=== PATIENT | female | born 1955 | race Caucasian/White ===

== ENCOUNTER 2019-12-25 09:34 | Outpatient (CLI) | payer OTHER, SELFPAY ==
[2019-12-25 10:30] LABS: Basophils Absolute Auto 0.1 K/mm3 (0.0-0.1); Basophils Percent Auto 0.8 % (0.2-1.2); Eosinophils Absolute Auto 0.1 K/mm3 (0-0.3); Eosinophils Percent Auto 1.9 % (0-4.4); Hematocrit 42.3 % (37.0-47.0); Hemoglobin 13.8 g/dL (12.0-15.0); Immature Granulocyte Absolute 0.01 K/mm3 (0.00-0.031); Immature Granulocyte Percent A 0.2 % (0-0.5); Lymphocytes Absolute Auto 2.29 K/mm3 (0.9-3.2); Lymphocytes Percent Auto 36.2 % (18.3-44.2); Mean Corpuscular HGB Conc 32.6 g/dl (32-36); Mean Corpuscular Hemoglobin 31.3 pg (26-34); Mean Corpuscular Volume 95.9 fl (80-100); Mean Platelet Volume 10.6 fl (7.4-10.4); Monocytes Absolute Auto 0.4 K/mm3 (0.1-0.6); Monocytes Percent Auto 6.2 % (2.6-8.5); Neutrophils Absolute Auto 3.5 K/mm3 (1.3-6.7); Neutrophils Percent Auto 54.7 % (45.5-73.1); Platelet Count Result 296 k/mm3 (150-375); Red Blood Count 4.41 M/mm3 (4.2-5.4); Red Cell Distribution Width 12.8 % (11.5-14.5); White Blood Count 6.3 K/mm3 (4.5-10.0)
[2019-12-25 10:43] LABS: Alanine Aminotransferase 17 U/L (4-35); Albumin Level 4.6 g/dL (3.5-5.1); Alkaline Phosphatase 96 U/L (38-126); Aspartate Amino Transferase 23 U/L (14-36); Bilirubin,Total 0.3 mg/dL (0.2-1.3); Blood Urea Nitrogen 22 mg/dL (7-17); Calcium 9.2 mg/dL (8.4-10.2); Carbon Dioxide 31 mmol/L (22-30); Chloride 101 mmol/L (98-107); Cholesterol 208 mg/dL (0-200); Estimated Glomerular Filt Rate > 60; Glucose 97 mg/dL (65-105); HDL Direct 79 mg/dL; Potassium 4.2 mmol/L (3.4-5.0); Sodium 138 mmol/L (137-145); Triglycerides 117 mg/dL (<150)
[2019-12-25 10:53] LABS: LDL Cholesterol Direct 101 mg/dL
[2019-12-25 11:07] LABS: Vitamin D 25 Hydroxy 44.4 ng/mL
== END 2019-12-25 09:35 | disposition home or self-care (01) ==
PROVIDERS: PCP Internal Medicine; Visit Provider Internal Medicine
DX: I10 Essential (primary) hypertension (principal); E78.5 Hyperlipidemia, unspecified; M85.80 Other specified disorders of bone density and structure, unspecified site
CPT/HCPCS: 36415; 80053; 80061; 82306; 84443; 85025

== ENCOUNTER 2020-06-10 16:03 | Outpatient (CLI) | payer OTHER, SELFPAY ==
--- NOTE | ~2020-06-10 | XR_ITS ---
XR_CERV2-3V_CR DATE: 06/10/2020 16:38 INDICATION: Right shoulder pain, radiating to neck and down the right upper extremity TECHNIQUE: AP, open-mouth, lateral views COMPARISON: None FINDINGS: There is straightening of the cervical spine. C1 and C2 are normally aligned and the odontoid process is intact. There is minimal anterolisthesis at C2-3. C2-3 and C3-4 and C4-5 interspaces are relatively preserved . There is moderately severe degenerative disc disease at C5-6 and C6-7. There is uncovertebral joint spurring in the mid to lower cervical spine and degenerative change of t he apophyseal joints. IMPRESSION: Straightening Degenerative changes, most pronounced at C5-6 and C6-7 Reviewed, dictated and finalized at Location A. Reviewed, dictated and finalized at location A. NICAL TECHNICAL OFFICER
--- NOTE | ~2020-06-10 | XR_ITS ---
XR shoulder RT min 2V DATE: 06/10/2020 16:38 INDICATION: Right shoulder pain, radiating to neck and down the right upper extremity TECHNIQUE: 4 views COMPARISON: None FINDINGS: Incidentally noted is mild to moderate loss of height at T8 vertebral body. No fracture or dislocation, periosteal reaction or bone destruction or abnormal soft tissue calcifica tion of the right shoulder. IMPRESSION: T8 loss of height No significant radiographic abnormality of the right shoulder Reviewed, dictated and finalized at location A. SHOP MANAGER
== END 2020-06-10 16:04 | disposition home or self-care (01) ==
LOC: ANHIMG 16:07
PROVIDERS: PCP Internal Medicine; Visit Provider Internal Medicine
DX: M25.511 Pain in right shoulder (principal); M50.323 Other cervical disc degeneration at C6-C7 level
CPT/HCPCS: 72040; 73030

== ENCOUNTER 2020-06-15 10:08 | Outpatient (CLI) | payer OTHER, SELFPAY ==
[2020-06-15 10:53] LABS: Hematocrit 38.1 % (37.0-47.0); Hemoglobin 12.9 g/dL (12.0-15.0); Mean Corpuscular HGB Conc 33.9 g/dl (32-36); Mean Corpuscular Hemoglobin 32.4 pg (26-34); Mean Corpuscular Volume 95.7 fl (80-100); Mean Platelet Volume 9.8 fl (7.4-10.4); Platelet Count Result 279 k/mm3 (150-375); Red Blood Count 3.98 M/mm3 (4.2-5.4); Red Cell Distribution Width 12.3 % (11.5-14.5); White Blood Count 6.9 K/mm3 (4.5-10.0)
[2020-06-15 11:08] LABS: Alanine Aminotransferase 15 U/L (4-35); Albumin Level 4.2 g/dL (3.5-5.1); Alkaline Phosphatase 94 U/L (38-126); Anion Gap 7 mmol/L (8-16); Aspartate Amino Transferase 20 U/L (14-36); Bilirubin,Total 0.4 mg/dL (0.2-1.3); Blood Urea Nitrogen 12 mg/dL (7-17); Calcium 9.3 mg/dL (8.4-10.2); Carbon Dioxide 30 mmol/L (22-30); Chloride 99 mmol/L (98-107); Cholesterol 174 mg/dL (0-200); Estimated Glomerular Filt Rate > 60; Glucose 97 mg/dL (65-105); HDL Direct 71 mg/dL; Potassium 4.2 mmol/L (3.4-5.0); Sodium 136 mmol/L (137-145); Triglycerides 113 mg/dL (<150)
[2020-06-15 11:19] LABS: LDL Cholesterol Direct 77 mg/dL
[2020-06-15 12:28] LABS: Vitamin D 25 Hydroxy 43.5 ng/mL
== END 2020-06-15 10:09 | disposition home or self-care (01) ==
LOC: ANHLAB 10:11
PROVIDERS: PCP Internal Medicine; Visit Provider Internal Medicine
DX: E78.2 Mixed hyperlipidemia (principal); I10 Essential (primary) hypertension; M85.80 Other specified disorders of bone density and structure, unspecified site
CPT/HCPCS: 36415; 80053; 80061; 82306; 84443; 85027

== ENCOUNTER 2020-09-15 10:04 | Outpatient (CLI) | payer OTHER, SELFPAY ==
--- NOTE | 2020-09-15 11:30 | NEURO_ITS ---
Impression: # Complains of numbness of both hands and right upper extremity and neck pain. # Left Carpal Tunnel Syndrome, sensory more than motor. # No ulnar neuropathy. # Normal needle/EMG exam,with normal F waves latency bilaterally.. Nerve Conduction Studies Anti Sensory Summary Table Stim Site NR Peak (ms) P-T Amp (?V) Site1 Site2 Delta-P (ms) Dist (cm) Yefri (m/s) Left Median Anti Sensory (2-3nd Digit) Wrist 9.5 11.9 Wrist 2-3nd Digit 9.5 14.0 15 Wrist 6.8 30.0 Wrist 2-3nd Digit 9.5 14.0 15 Right Median Anti Sensory (2-3nd Digit) Wrist 3.1 21.6 Wrist 2-3nd Digit 3.1 14.0 45 Wrist 2.4 8.6 Wrist 2-3nd Digit 3.1 14.0 45 Left Radial Anti Sensory (Base 1st Digit) Wrist 1.9 28.7 Wrist Base 1st Digit 1.9 0.0 Right Radial Anti Sensory (Base 1st Digit) Wrist 2.1 29.4 Wrist Base 1st Digit 2.1 0.0 Left Ulnar Anti Sensory (5th Digit) Wrist 2.3 66.4 Wrist 5th Digit 2.3 14.0 61 Right Ulnar Anti Sensory (5th Digit) Wrist 2.4 59.8 Wrist 5th Digit 2.4 14.0 58 Motor Summary Table Stim Site NR Onset (ms) O-P Amp (mV) Site1 Site2 Delta-0 (ms) Dist (cm) Yefri (m/s) Left Median Motor (Abd Poll Brev) Wrist 3.8 1.6 Elbow Wrist 3.6 25.0 69 Elbow 7.4 2.5 Right Median Motor (Abd Poll Brev) Wrist 3.1 3.6 Elbow Wrist 4.1 25.0 61 Elbow 7.2 1.8 Left Ulnar Motor (Abd Dig Minimi) Wrist 2.1 4.9 A Elbow Wrist 4.2 26.0 62 A Elbow 6.3 4.4 Right Ulnar Motor (Abd Dig Minimi) Wrist 2.4 5.9 A Elbow Wrist 4.5 26.0 58 A Elbow 6.9 5.0 F Wave Studies NR F-Lat (ms) L-R F-Lat (ms) Left Median (Mrkrs) (Abd Poll Brev) 25.11 0.99 Right Median (Mrkrs) (Abd Poll Brev) 24.12 0.99 Left Ulnar (Mrkrs) (Abd Dig Min) 23.83 0.03 Right Ulnar (Mrkrs) (Abd Dig Min) 23.80 0.03 EMG Side Muscle Nerve Root Ins Act Fibs Amp Dur Recrt Comment Right 1stDorInt Ulnar C8-T1 Nml Nml Nml Nml Nml Right Ext Indicis Radial (Post Int) C7-8 Nml Nml Nml Nml Nml Right Ext Digitorum Radial (Post Int) C7-8 Nml Nml Nml Nml Nml Right BrachioRad Radial C5-6 Nml Nml Nml Nml Nml Right PronatorTeres Median C6-7 Nml Nml Nml Nml Nml Right Abd Poll Brev Median C8-T1 Nml Nml Nml Nml Nml Left 1stDorInt Ulnar C8-T1 Nml Nml Nml Nml Nml Left Ext Indicis Radial (Post Int) C7-8 Nml Nml Nml Nml Nml Left Ext Digitorum Radial (Post Int) C7-8 Nml Nml Nml Nml Nml Left BrachioRad Radial C5-6 Nml Nml Nml Nml Nml Left PronatorTeres Median C6-7 Nml Nml Nml Nml Nml Left Abd Poll Brev Median C8-T1 Nml Nml Nml Nml Nml Left ABD Dig Min Ulnar C8-T1 Nml Nml Nml Nml Nml Right ABD Dig Min Ulnar C8-T1 Nml Nml Nml Nml Nml Right Biceps Musculocut C5-6 Nml Nml Nml Nml Nml Right Brachialis Musculocut C5-6 Nml Nml Nml Nml Nml Right Triceps Radial C6-7-8 Nml Nml Nml Nml Nml MTDD
== END 2020-09-15 10:05 | disposition home or self-care (01) ==
LOC: ANHNEURO 10:06
PROVIDERS: PCP Internal Medicine; Visit Provider Internal Medicine
DX: R20.0 Anesthesia of skin (principal); G56.02 Carpal tunnel syndrome, left upper limb
CPT/HCPCS: 95886; 95911

== ENCOUNTER → 2021-01-24 12:45 | Outpatient (CLI) | payer OTHER, SELFPAY ==
--- NOTE | ~2021-01-24 | MM_ITS ---
EXAMINATION: MM screening [facility] BI w malu HISTORY: Screening TECHNIQUE: Craniocaudal and mediolateral oblique 3-D tomosynthesis images were obtained and synthetic 2-D images were generated. CAD analysis was submitted and interpreted. COMPARISON: Comparison to multiple prior studies sequentially, with oldest reviewed study dated 09/14. BREAST PARENCHYMAL COMPOSITION: There are scattered areas of fibroglandular density. FINDINGS: There is no evidence of suspicious mass, calcification, or architectural distortion to sugg est malignancy in either breast. There has been no suspicious interval change. IMPRESSION: 1. No mammographic evidence of malignancy. 2. Recommend routine screening mammography in one year. BI-RADS Category 1: Negative Reviewed, dictated and finalized at location A.
== END ==
PROVIDERS: Visit Provider Internal Medicine
DX: Z12.31 Encounter for screening mammogram for malignant neoplasm of breast (principal)
CPT/HCPCS: 77063; 77067

== ENCOUNTER → 2021-02-02 15:42 | Outpatient (CLI) | payer OTHER, SELFPAY ==
--- NOTE | ~2021-02-02 | XR_ITS ---
EXAMINATION: XR chest 2V EXAM DATE: 02/02/2021 16:09 INDICATION: Cough. TECHNIQUE: Frontal and lateral projections of the chest obtained and reviewed. Comparison is made to prior examination from 03/15/2007. FINDINGS: The lungs are clear. There are no pleural effusions. The cardiomediastinal silhouette is within normal limits. There is no pneumothorax suspected. The bones and soft tissues are unremarkab le. IMPRESSION: No acute cardiopulmonary findings. Reviewed, dictated and finalized at location B.
== END ==
PROVIDERS: PCP Internal Medicine; Visit Provider Internal Medicine
DX: R05 Cough (principal)
CPT/HCPCS: 71046

== ENCOUNTER 2021-04-11 10:24 | Outpatient (CLI) | payer OTHER, SELFPAY ==
[2021-04-11 11:15] LABS: Basophils Absolute Auto 0.1 K/mm3 (0.0-0.1); Eosinophils Absolute Auto 0.2 K/mm3 (0-0.3); Eosinophils Percent Auto 2.7 % (0-4.4); Hematocrit 39.3 % (37.0-47.0); Hemoglobin 12.6 g/dL (12.0-15.0); Immature Granulocyte Absolute 0.01 K/mm3 (0.00-0.031); Immature Granulocyte Percent A 0.2 % (0-0.5); Lymphocytes Absolute Auto 1.97 K/mm3 (0.9-3.2); Lymphocytes Percent Auto 31.5 % (18.3-44.2); Mean Corpuscular HGB Conc 32.1 g/dl (32-36); Mean Corpuscular Hemoglobin 31.8 pg (26-34); Mean Corpuscular Volume 99.2 fl (80-100); Mean Platelet Volume 10.1 fl (7.4-10.4); Monocytes Absolute Auto 0.4 K/mm3 (0.1-0.6); Monocytes Percent Auto 6.4 % (2.6-8.5); Neutrophils Absolute Auto 3.6 K/mm3 (1.3-6.7); Neutrophils Percent Auto 58.2 % (45.5-73.1); Platelet Count Result 274 k/mm3 (150-375); Red Blood Count 3.96 M/mm3 (4.2-5.4); Red Cell Distribution Width 12.8 % (11.5-14.5); White Blood Count 6.3 K/mm3 (4.5-10.0)
[2021-04-11 11:31] LABS: Alanine Aminotransferase 15 U/L (4-35); Albumin Level 4.3 g/dL (3.5-5.1); Alkaline Phosphatase 86 U/L (38-126); Anion Gap 8 mmol/L (8-16); Aspartate Amino Transferase 20 U/L (14-36); Bilirubin,Total 0.4 mg/dL (0.2-1.3); Blood Urea Nitrogen 10 mg/dL (7-17); Calcium 9.4 mg/dL (8.4-10.2); Carbon Dioxide 30 mmol/L (22-30); Chloride 101 mmol/L (98-107); Cholesterol 157 mg/dL (0-200); Estimated Glomerular Filt Rate > 60; Glucose 94 mg/dL (65-110); HDL Direct 81 mg/dL; Hemoglobin A1C 5.6 % (<5.7); Potassium 4.4 mmol/L (3.4-5.0); Sodium 139 mmol/L (137-145); Triglycerides 108 mg/dL (<150)
[2021-04-11 11:43] LABS: LDL Cholesterol Direct 49 mg/dL
[2021-04-11 12:29] LABS: Vitamin D 25 Hydroxy 43.6 ng/mL
== END 2021-04-11 10:25 | disposition home or self-care (01) ==
PROVIDERS: PCP Internal Medicine; Visit Provider Internal Medicine
DX: M85.80 Other specified disorders of bone density and structure, unspecified site (principal); I10 Essential (primary) hypertension; F41.8 Other specified anxiety disorders; E78.2 Mixed hyperlipidemia; Z79.899 Other long term (current) drug therapy
CPT/HCPCS: 36415; 80053; 80061; 82306; 83036; 84443; 85025

== ENCOUNTER → 2021-06-13 15:19 | Outpatient (CLI) | payer OTHER, SELFPAY ==
--- NOTE | ~2021-06-13 | XR_ITS ---
EXAMINATION: XR hand LT min 3V, XR hand RT min 3V DATE: 06/13/2021 15:49 INDICATION: Trigger finger with pain at the bilateral first interphalangeal joints and second and thi rd proximal interphalangeal joints. TECHNIQUE: 1. Posteroanterior, oblique and lateral views of the left hand were obtained. 2. Posteroanterior, oblique and lateral views of the right hand were obtained. COMPARISON: None. FINDINGS: Bilateral ulnar positive variance, and-2 mm on the left and 2-3 mm on the right. Alignment is otherwi se normal at both hands. Old healed fracture deformity at the base of the right fifth middle phalanx which demonstrates widening in the AP direction on the lateral projection. No acute fractures. Relati vely symmetric typical pattern of mild to moderate polyarticular osteoarthritis. This is of moderate severity at the distal interphalangeal joints at the bilateral second and third digits and at the rig ht fifth proximal interphalangeal joint and mild at the remaining interphalangeal joints and bilatera l first metacarpophalangeal, triscaphe and first carpal metacarpal joints. No erosions to suggest inf lammatory arthritis. Bilateral diffuse osteopenia. IMPRESSION: 1. Mild to moderate polyarticular osteoarthritis at both hands. Reviewed, dictated and finalized at location A. AND GARDEN TECHNICIAN IMPRESSION: 1. Mild to moderate polyarticular osteoarthritis at both hands.
== END ==
PROVIDERS: PCP Internal Medicine; Visit Provider Internal Medicine
DX: M65.30 Trigger finger, unspecified finger (principal); M19.041 Primary osteoarthritis, right hand; M19.042 Primary osteoarthritis, left hand
CPT/HCPCS: 73130

== ENCOUNTER 2021-08-08 11:00 | Outpatient (CLI) | payer OTHER, SELFPAY ==
[2021-08-08 11:53] LABS: Basophils Absolute Auto 0.1 K/mm3 (0.0-0.1); Basophils Percent Auto 1.1 % (0.2-1.2); Eosinophils Absolute Auto 0.1 K/mm3 (0-0.3); Eosinophils Percent Auto 1.9 % (0-4.4); Immature Granulocyte Absolute 0.01 K/mm3 (0.00-0.031); Immature Granulocyte Percent A 0.2 % (0-0.5); Lymphocytes Percent Auto 42.2 % (18.3-44.2); Mean Corpuscular HGB Conc 32.5 g/dl (32-36); Mean Corpuscular Hemoglobin 31.9 pg (26-34); Mean Corpuscular Volume 98.3 fl (80-100); Mean Platelet Volume 10.5 fl (7.4-10.4); Monocytes Absolute Auto 0.4 K/mm3 (0.1-0.6); Monocytes Percent Auto 6.5 % (2.6-8.5); Neutrophils Absolute Auto 2.7 K/mm3 (1.3-6.7); Neutrophils Percent Auto 48.1 % (45.5-73.1); Platelet Count Result 255 k/mm3 (150-375); Red Blood Count 4.07 M/mm3 (4.2-5.4); Red Cell Distribution Width 12.6 % (11.5-14.5); White Blood Count 5.7 K/mm3 (4.5-10.0)
[2021-08-08 12:06] LABS: Alanine Aminotransferase 14 U/L (4-35); Albumin Level 4.3 g/dL (3.5-5.1); Alkaline Phosphatase 74 U/L (38-126); Anion Gap 10 mmol/L (8-16); Aspartate Amino Transferase 19 U/L (14-36); Bilirubin,Total 0.4 mg/dL (0.2-1.3); Blood Urea Nitrogen 14 mg/dL (7-17); CRP 0.5 mg/dL (<1.0); Calcium 9.2 mg/dL (8.4-10.2); Carbon Dioxide 30 mmol/L (22-30); Chloride 97 mmol/L (98-107); Estimated Glomerular Filt Rate > 60; Glucose 95 mg/dL (65-110); Potassium 4.2 mmol/L (3.4-5.0); Rheumatoid Factor < 8.6 IU/ML (<12); Sodium 137 mmol/L (137-145)
[2021-08-08 13:04] LABS: Hepatitis B Surface Anti Res Negative
[2021-08-08 14:20] LABS: Erythrocyte Sedimentation Rate 11 mm/hr (0-20)
[2021-08-08 18:01] LABS: Hepatitis B Surface Antigen Negative (Negative)
[2021-08-10 18:42] LABS: Hepatitis B Core Ab Total Nonreactive (Nonreactive)
== END 2021-08-08 11:01 | disposition home or self-care (01) ==
LOC: ANHLAB 11:04
PROVIDERS: PCP Internal Medicine; Visit Provider Physician Assistant
DX: M25.50 Pain in unspecified joint (principal); Z11.59 Encounter for screening for other viral diseases; R53.82 Chronic fatigue, unspecified
CPT/HCPCS: 36415; 80053; 85025; 85652; 86140; 86430; 86704; 86706; 87340

== ENCOUNTER 2022-05-21 20:43 | Emergency (ER) | payer OTHER, SELFPAY ==
[2022-05-21 20:45] VITALS: BP 159/73; PULSE 96; RESP 18; TEMP 36.6; O2SAT 97
--- NOTE | 2022-05-21 21:39 | PC.NURSE ---
pt left d/t wait time, was encouraged to seel medical attention for dog bites. pt was agreeable to this
== END 2022-05-21 21:53 | disposition left against medical advice (07) ==
LOC: ANHED 21:50
PROVIDERS: PCP Internal Medicine
DX: S41.152A Open bite of left upper arm, initial encounter (principal); W54.0XXA Bitten by dog, initial encounter
CPT/HCPCS: 99199

== ENCOUNTER → 2022-11-01 07:17 | Outpatient (CLI) | payer MEDICARE, SELFPAY ==
--- NOTE | ~2022-11-01 | MM_ITS ---
EXAMINATION: MM screening [facility] BI w malu HISTORY: Screening TECHNIQUE: Craniocaudal and mediolateral oblique 3-D tomosynthesis images were obtained and synthetic 2-D images were generated. CAD analysis was submitted and interpreted. COMPARISON: Comparison to multiple prior studies sequentially, with oldest reviewed study dated 04/02. BREAST PARENCHYMAL COMPOSITION: There are scattered areas of fibroglandular density. FINDINGS: There is no evidence of suspicious mass, calcification, or architectural distortion to sugg est malignancy in either breast. There has been no suspicious interval change. IMPRESSION: 1. No mammographic evidence of malignancy. 2. Recommend routine screening mammography in one year. BI-RADS Category 1: Negative Reviewed, dictated and finalized at location A.
== END ==
PROVIDERS: PCP Internal Medicine; Visit Provider Internal Medicine
DX: Z12.31 Encounter for screening mammogram for malignant neoplasm of breast (principal)
CPT/HCPCS: 77063; 77067

== ENCOUNTER 2022-12-20 11:07 | Outpatient (CLI) | payer MEDICARE, SELFPAY ==
[2022-12-20 12:07] LABS: Basophils Absolute Auto 0.1 K/mm3 (0.0-0.1); Basophils Percent Auto 0.9 % (0.2-1.2); Eosinophils Absolute Auto 0.1 K/mm3 (0-0.3); Eosinophils Percent Auto 0.9 % (0-4.4); Hematocrit 38.6 % (37.0-47.0); Hemoglobin 12.5 g/dL (12.0-15.0); Immature Granulocyte Absolute 0.02 K/mm3 (0.00-0.031); Immature Granulocyte Percent A 0.3 % (0-0.5); Lymphocytes Absolute Auto 1.73 K/mm3 (0.9-3.2); Lymphocytes Percent Auto 26.4 % (18.3-44.2); Mean Corpuscular HGB Conc 32.4 g/dl (32-36); Mean Corpuscular Hemoglobin 32.1 pg (26-34); Mean Corpuscular Volume 99.2 fl (80-100); Monocytes Absolute Auto 0.4 K/mm3 (0.1-0.6); Monocytes Percent Auto 6.4 % (2.6-8.5); Neutrophils Absolute Auto 4.3 K/mm3 (1.3-6.7); Neutrophils Percent Auto 65.1 % (45.5-73.1); Platelet Count Result 250 k/mm3 (150-375); Red Blood Count 3.89 M/mm3 (4.2-5.4); Red Cell Distribution Width 12.8 % (11.5-14.5); White Blood Count 6.6 K/mm3 (4.5-10.0)
[2022-12-20 12:30] LABS: Alanine Aminotransferase 17 U/L (6-35); Albumin Level 4.3 g/dL (3.5-5.1); Alkaline Phosphatase 80 U/L (38-126); Anion Gap 7 mmol/L (8-16); Aspartate Amino Transferase 22 U/L (14-36); Bilirubin,Total 0.5 mg/dL (0.2-1.3); Blood Urea Nitrogen 13 mg/dL (7-17); Calcium 8.6 mg/dL (8.4-10.2); Carbon Dioxide 29 mmol/L (22-30); Chloride 100 mmol/L (98-107); Cholesterol 164 mg/dL (0-200); Estimated Glomerular Filt Rate > 60; Glucose 89 mg/dL (65-110); HDL Direct 75 mg/dL; Potassium 3.8 mmol/L (3.4-5.0); Sodium 136 mmol/L (137-145); Triglycerides 78 mg/dL (<150)
[2022-12-20 12:41] LABS: LDL Cholesterol Direct 70 mg/dL
[2022-12-20 13:00] LABS: Thyroid Stimulating Hormone 0.755 uIU/mL (0.465-4.680)
== END 2022-12-20 11:08 | disposition home or self-care (01) ==
PROVIDERS: PCP Internal Medicine; Visit Provider Internal Medicine
DX: I10 Essential (primary) hypertension (principal); F41.8 Other specified anxiety disorders; E78.2 Mixed hyperlipidemia; Z78.0 Asymptomatic menopausal state
CPT/HCPCS: 36415; 80053; 80061; 84443; 85025

== ENCOUNTER 2023-10-25 14:35 | Emergency (ER) | payer MEDICARE, SELFPAY ==
--- NOTE | ~2023-10-25 | XR_ITS ---
EXAMINATION: XR shoulder RT min 2V DATE: 10/25/2023 15:34 INDICATION: Right shoulder pain. TECHNIQUE: 4 views of right shoulder were obtained. COMPARISON: Right shoulder radiographs 06/10/2020 FINDINGS: Bone alignment is normal. No fracture. There is mild osteoarthritis of glenohumeral joint a nd severe osteoarthritis of acromioclavicular joint. IMPRESSION: 1. Polyarticular osteoarthritis. Reviewed, dictated and finalized at location A.
--- NOTE | ~2023-10-25 | CT_ITS ---
EXAMINATION: CT cervical spine wo con DATE: 10/25/2023 15:22 INDICATION: Right neck pain radiating down the right arm. TECHNIQUE: Computed tomography (CT) of the cervical spine was performed without intravenous contrast. Automated exposure control and iterative reconstruction technique were employed. The dose-length pro duct was 125.92 mGy-cm. COMPARISON: None FINDINGS: The lung apices demonstrate emphysema. There is a left otomastoid effusion. There is a smal l right mastoid effusion. There is 9 degrees dextrocurvature of cervical spine. There is kyphosis of cervical spine. There is 2 mm retrolisthesis of C5 on C6. There is mild chronic anterior wedging of T 1 and T2 vertebral bodies. There is mildly decreased disc height at C4-C5, severely decreased disc he ight at C5-C6, and moderately decreased disc height at C6-C7. The following disc levels are specific ally discussed: C2-C3: There is no uncovertebral joint osteoarthritis. There is severe bilateral facet joint osteoart hritis. There is no neural foraminal stenosis. There is no central canal stenosis. C3-C4: There is mild bilateral uncovertebral joint osteoarthritis. There is severe bilateral facet marla int osteoarthritis. There is mild right neural foraminal stenosis. There is no central canal stenosis . C4-C5: There is mild bilateral uncovertebral joint osteoarthritis. There is mild right and severe lef t facet joint osteoarthritis. There is mild left neural foraminal stenosis. There is mild central can al stenosis. C5-C6: There is severe bilateral uncovertebral joint osteoarthritis. There is mild bilateral facet marla int osteoarthritis. There is mild right and moderate left neural foraminal stenosis. There is mild ce ntral canal stenosis. C6-C7: There is severe right and mild left uncovertebral joint osteoarthritis. There is mild right an d moderate left facet joint osteoarthritis. There is mild right neural foraminal stenosis. There is m ild central canal stenosis. C7-T1: There is no uncovertebral joint osteoarthritis. There is moderate bilateral facet joint osteoa rthritis. There is no neural foraminal stenosis. There is no central canal stenosis. IMPRESSION: 1. No fracture. 2. Severe cervical spondylosis. 3. Emphysema. Reviewed, dictated and finalized at location A.
[2023-10-25 14:43] VITALS: BP 129/74; PULSE 94; RESP 18; TEMP 36.2; O2SAT 98
--- NOTE | 2023-10-25 15:02 | ED.UPPEXIN ---
HPI - Extremity Injury (Upper) General Chief Complaint: Extremity Injury, Upper Stated Complaint: shoulder injury Time Seen by Provider: 10/25/23 14:49 Source: patient Mode of arrival: ambulatory Limitations: no limitations History of Present Illness HPI narrative: This is a 67 year old female that presents to the ER for right shoulder pain. Ongoing over the last 2 weeks. Report she had a fall prior to it starting. She did not hit her head or lose consciousness. Reports the pain radiates from her neck to her shoulder and into her arm. Denies decreased ROM, weakness or numbness. Related Data Allergies Allergy/AdvReac Type Severity Reaction Status Date / Time propoxyphene Allergy Mild Itching Verified 10/25/23 15:09 Penicillins Allergy Unknown RASH Verified 10/25/23 15:09 Review of Systems Review of Systems: CONSTITUTIONAL: Denies fever SKIN: Denies rash MUSCULOSKELETAL: Reports joint pain, and myalgia. NEUROLOGIC: Denies numbness, or weakness. All systems reviewed & are unremarkable except as noted in HPI and below PMFSH Past Medical History Medical History (Updated 10/25/23 @ 16:05 by Caitlin Castellanos PA-C) History of hyperlipidemia History of hypertension Social History Social History (Updated 10/25/23 @ 15:06 by Caitlin Castellanos PA-C) Substance use: never Exam Narrative: GENERAL: Well-appearing, well-nourished, and in no acute distress. HEAD: Normocephalic, atraumatic. EYES: EOMI. NECK: Supple. No adenopathy or masses. Tender to palpation of the right trapezius musculature CHEST: Clear to auscultation. No respiratory distress. No wheezes rales or rhonchi HEART: Regular rate and rhythm. No murmur heard. Normal peripheral pulses. EXTREMITIES: Normal range of motion. No edema or obvious deformity. Strength equal in bilateral upper extremities (5/5). Normal radial pulses SKIN: Warm, dry, no rash. NEURO: No focal deficits. Alert and oriented x3. PSYCH: Normal mood and affect Course Course Emergency Course: Patient updated on her workup and agrees with plan of care Vital Signs Vital signs: Vital Signs Temperature 97.1 F L 10/25/23 14:43 Pulse Rate 94 10/25/23 14:43 Respiratory Rate 18 10/25/23 14:43 Blood Pressure 129/74 10/25/23 14:43 Pulse Oximetry 98 10/25/23 14:43 Oxygen Delivery Room Air 10/25/23 14:43 Temperature 97.1 F L 10/25/23 14:43 Pulse Rate 82 10/25/23 15:43 Respiratory Rate 14 10/25/23 15:43 Blood Pressure 130/71 10/25/23 15:43 Pulse Oximetry 98 10/25/23 15:43 Oxygen Delivery Room Air 10/25/23 14:43 MDM - Extremity Injury (Upper) MDM Narrative Medical decision making narrative: Patient presents to the emergency department for right shoulder and neck pain. Ongoing over the last 2 weeks. Reports a possible injury after a fall. She is neurologically intact. Her vitals are stable. Right shoulder x-ray shows polyarticular osteoarthritis. Cervical spine CT is without acute findings. Shows severe cervical spondylosis. She was updated on her workup and agrees with plan of care. She is to follow up with primary provider. Will be given follow-up with Neurosurgery. She was given warnings to return to the ER Differential Diagnosis Differential diagnosis: Likely other ( shoulder sprain, cervical radiculopathy, rotator cuff tendinitis) Imaging Data Radiologist's impression: ITS Impressions Cervical Spine CT 10/25/23 15:28 IMPRESSION: 1. No fracture. 2. Severe cervical spondylosis. 3. Emphysema. Shoulder X-Ray 10/25/23 15:41 IMPRESSION: 1. Polyarticular osteoarthritis. Critical Care Time Critical Care Time Critical Care Time: No Discharge Plan Discharge Clinical Impression: Acute neck pain, Acute pain of right shoulder Patient Disposition: Home, Self-Care Condition: Stable Instructions: Cervical Radiculopathy (ED) Additional Instructions: Return to the ER if you experience weakness, num
[2023-10-25] MEDS: ACETAMINOPHEN 500 MG TABLET 1000 MG PO (15:11)
[2023-10-25] MEDS: KETOROLAC 30 MG/ML VIAL (*BKC) IM (15:12)
[2023-10-25 15:43] VITALS: BP 130/71; PULSE 82; RESP 14; O2SAT 98
[2023-10-25 16:13] VITALS: BP 126/75; PULSE 80; RESP 14; TEMP 36.8; O2SAT 98
== END 2023-10-25 16:16 | disposition home or self-care (01) ==
PROVIDERS: Emergency Provider Physician Assistant; PCP Internal Medicine
DX: S49.91XA Unspecified injury of right shoulder and upper arm, initial encounter (principal); S19.9XXA Unspecified injury of neck, initial encounter; E78.5 Hyperlipidemia, unspecified; I10 Essential (primary) hypertension; M47.812 Spondylosis without myelopathy or radiculopathy, cervical region; J43.9 Emphysema, unspecified; M19.011 Primary osteoarthritis, right shoulder; W19.XXXA Unspecified fall, initial encounter
CPT/HCPCS: 72125; 73030; 96372; 99284; A9270; J1885

== ENCOUNTER 2025-07-06 13:58 | Outpatient (CLI) | payer MEDICARE, SELFPAY ==
--- NOTE | ~2025-07-06 | DEXA_ITS ---
Bone Density Report Name: VIVIEN CARTER Age: 69 Sex: Female Ethnicity: White Date of : 1955 Indication: postmenopausal; screening for osteoporosis; parental hip fracture; height loss; history of glucocorticoids; prior fracture; rheumatoid arthritis; Referring Provider: AYE, TIFFANI Study: Bone densitometry was performed. Exam Date: July 06, 2025 Accession number: [id number] Bone Density: Region BMD T-score Z-score Classification AP Spine(L1-L4) 0.983 -0.6 1.4 Normal Femoral Neck (Left) 0.673 -1.6 0.1 Osteopenia Total Hip (Left) 0.743 -1.6 -0.3 Osteopenia Femoral Neck (Right) 0.732 -1.1 0.6 Osteopenia Total Hip (Right) 0.740 -1.7 -0.3 Osteopenia Total Hip Mean 0.742 -1.7 -0.3 Osteopenia World Health Organization criteria for BMD impression classify patients as: Normal (T-score at or above -1.0), Osteopenia (T-score between -1.0 and -2.5), or Osteoporosis (T-score at or below -2.5). 10-year Fracture Risk(1): Major Osteoporotic Fracture 46% Hip Fracture 7.5% Reported Risk Factors: [place] (), Neck BMD=0.673, BMI=26.0, previous fracture, parental fracture, glucocorticoids, rheumatoid arthritis (1) FRAX(R) Version 3.08. Fracture probability calculated for an untreated patient. Fracture probability may be lower if the patient has received treatment. Previous Exams: -- Region Exam Age BMD T-score BMD Change BMD Change Date g/cm2 vs Baseline vs Previous -- AP Spine (L1-L4) 07/06/2025 69 0.983 -0.6 -0.4%# -0.5%# 08/25/2010 54 0.988 -0.5 0.1% 0.1% 11/17/2007 52 0.987 -0.5 Total Hip(Left) 07/06/2025 69 0.743 -1.6 -16.8%# -14.2%# 08/25/2010 54 0.867 -0.6 -3.0% -3.0% 11/17/2007 52 0.894 -0.4 Total Hip(Right) 07/06/2025 69 0.740 -1.7 -13.1%# -11.9%# 08/25/2010 54 0.841 -0.8 -1.4% -1.4% 11/17/2007 52 0.852 -0.7 -- *Denotes significance at 95% confidence level, LSC for AP Spine = 0.022 g/cm2, LSC for Total Hip = 0.027 g/cm2 # Denotes dissimilar scan types or analysis methods Clinical Information Provided by Patient: Has had a low trauma fracture Parent has had a hip fracture Has taken Glucocorticoids Has rheumatoid arthritis Has used the following medications: Vitamin D Patient maximum height was 62 Menopause Age: 50 No regular weight bearing exercise Does not regularly consume dairy products Drinks caffeinated beverages Onset of menses at age 17 Number of children 0 Impression: The patient has low bone mass, based on the Right Total Hip T-score. The patient has an estimated ten-year risk of hip fracture of 7.5% and an estimated ten-year risk of major fracture of 46%, based on the WHO FRAX algorithm. The patient has risk factors, including: parental hip fracture, previous fracture, history of glucocorticoid therapy. Unable to evaluate interval change due to the use of different scan modes. Discussion: BONE DENSITY IS LOW AT ONE OR MORE SKELETAL SITES. THE PATIENT'S BMD AND CLINICAL RISK FACTORS CONTRIBUTE TO THIS PATIENT'S HIGH RISK OF FRACTURE. This patient's lowest T-score is low at one or more skeletal sites. It meets the World Health Organization's (WHO) criteria for ?low bone mass? (T-score between -1.0 and -2.5). The patient's 10-year risk of hip fracture and 10 year risk of a major osteoporotic fracture as calculated by FRAX exceeds the threshold where pharmacological therapy is recommended by the National Osteoporosis Foundation (NOF). However, all treatment decisions require clinical judgment and consideration of individual patient factors, including patient preferences, comorbidities, previous drug use, risk factors not captured in the FRAX model (e.g., frailty, falls, vitamin D deficiency, increased bone turnover, interval significant decline in bone density) and possible under or overestimation of fracture risk by FRAX. The patient should follow a healthful lifestyle (good nutrition with adequate calcium and vitamin D, and appropriate weight-bearing exercise). Follow-Up: Consider a repeat BMD and Vertebral Fracture Assessment (VFA) exam in 2 years or sooner if medically necessary, to reassess this patient's status. Reported by: MELY on 07/06/2025 2:28:00 PM. Reviewed, dictated and finalized at location A.
--- NOTE | ~2025-07-06 | MM_ITS ---
EXAMINATION: MM screening [facility] BI w malu HISTORY: Screening. TECHNIQUE: Craniocaudal and mediolateral oblique 3-D tomosynthesis images were obtained and synthetic 2-D images were generated. CAD analysis was submitted and interpreted. COMPARISON: 2022, 2020, and 2018. BREAST PARENCHYMAL COMPOSITION: Not Dense: There are scattered areas of fibroglandular FINDINGS: No suspicious masses are seen. There are no suspicious calcifications. No unexplained architectural distortion is seen. There are no skin or nipple abnormalities identified. There is no adenopathy seen on the images submitted. IMPRESSION: No mammographic evidence to suggest malignancy is seen. The patient may return to screening mammography as per ACR guidelines. BI-RADS 1 - Negative. Reviewed, dictated and finalized at location C. ING SEWING MACHINE OPERATOR
== END 2025-07-06 13:59 | disposition home or self-care (01) ==
LOC: MICIMG 13:59
PROVIDERS: PCP Internal Medicine; Visit Provider Internal Medicine
DX: Z12.31 Encounter for screening mammogram for malignant neoplasm of breast (principal); Z78.0 Asymptomatic menopausal state; F17.290 Nicotine dependence, other tobacco product, uncomplicated; M85.852 Other specified disorders of bone density and structure, left thigh; M85.851 Other specified disorders of bone density and structure, right thigh
CPT/HCPCS: 77063; 77067; 77080